=== PATIENT | female | born 1990 | race Two or more races ===

== ENCOUNTER 2019-03-30 12:11 | Emergency (ER) | payer MEDICAID ==
[~2019-03-30] VITALS: Ht 167.6 cm; Wt 93.0 kg
[2019-03-30 12:15] VITALS: BP 130/85
--- NOTE | 2019-03-30 12:38 | Emergency Room Report ---
History of Present Illness General Chief Complaint: Abdominal Pain Source: Patient Present Illness HPI Patient presents with left lower quadrant pain radiating towards her back. It started earlier today. His been constant and she's not taken any medication for it. The pain is rated 6/10. It's aching. She denies any dysuria or hematuria. She's midcycle at this time. She had loose stool twice this morning. Wasn't diarrhea or mucousy. No melena or blood. She also had some nausea without any vomiting. The nausea has resolved. She never been before. She denies any fevers or chills. No major medical illness. No prior surgeries. 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 Now: No Reviewed Nursing Documentation: PMH: Agreed; PSxH: Agreed Nursing Documentation-PMH Past Medical History: No Stated History Review of Systems All Other Systems: negative except mentioned in HPI Physical Exam Vital Signs Date Time Temp Pulse Resp B/P (MAP) Pulse Ox O2 Delivery O2 Flow Rate FiO2 03/30/19 12:15 86 20 Room Air 03/30/19 12:15 98.4 130/85 98 Sp02 EP Interpretation: reviewed, normal General Appearance: well appearing, no apparent distress, GCS 15 Head: normocephalic, atraumatic Eyes: bilateral eye normal inspection ENT: moist mucus membranes Neck: supple Respiratory: lungs clear, normal breath sounds Cardiovascular #1: regular rate, rhythm Cardiovascular #2: 2+ radial (R) Gastrointestinal: normal inspection, normal bowel sounds, no mass, non- distended, no guarding, no rebound, tenderness Genitourinary: no CVA tenderness Musculoskeletal: back normal, gait/station normal, normal range of motion Neurologic: alert, oriented x3, grossly normal Psychiatric: mood/affect normal Skin: normal inspection, warm/dry Medical Decision Making Diagnostic Impression: Primary Impression: Abdominal pain Qualified Codes: R10.32 - Left lower quadrant pain Additional Impression: Leukocytosis Qualified Codes: D72.828 - Other elevated white blood cell count ER Course Patient presents with left lower quadrant pain that began this morning. Differential includes ovarian cyst, ectopic , renal stone, diverticulitis, inflammatory bowel disease amongst others. Evaluation will be with lab work urinalysis and pelvic ultrasound. The patient will be treated with IV hydration and Tylenol. Labs with leukocytosis. UA clear. CMP and lipase normal. Pain persists and slightly worse after u/s. Fluid cul de sac. Normal ovaries. CT scan ordered. Toradol ordered. CT with possible small bowel thickening. Repeat exam - abd soft. Improved with treatment. Discussed results with patient as well as outpatient observation. Advised to return if worse. Patient stable for outpatient observation and treatment. Laboratory Tests Test 03/30/19 11:40 03/30/19 12:21 White Blood Count 12.2 K/UL (4.8-10.8) H Red Blood Count 4.37 M/UL (4.20-5.40) Hemoglobin 13.6 G/DL (12.0-16.0) Hematocrit 41.3 % (37.0-47.0) Mean Corpuscular Volume 94 FL (80-99) Mean Corpuscular Hemoglobin 31.1 PG (27.0-31.0) H Mean Corpuscular Hemoglobin Concent 33.0 G/DL (32.0-36.0) Red Cell Distribution Width 12.0 % (11.6-14.8) Platelet Count 303 K/UL (150-450) Mean Platelet Volume 6.5 FL (6.5-10.1) Neutrophils (%) (Auto) 70.8 % (45.0-75.0) Lymphocytes (%) (Auto) 21.2 % (20.0-45.0) Monocytes (%) (Auto) 5.9 % (1.0-10.0) Eosinophils (%) (Auto) 1.0 % (0.0-3.0) Basophils (%) (Auto) 1.1 % (0.0-2.0) Prothrombin Time 10.1 SEC (9.30-11.50) Prothrombin Time INR 1.0 (0.9-1.1) PTT 28 SEC (23-33) Sodium Level 141 MMOL/L (136-145) Potassium Level 4.2 MMOL/L (3.5-5.1) Chloride Level 106 MMOL/L (98-107) Carbon Dioxide Level 28 MMOL/L (21-32) Anion Gap 7 mmol/L (5-15) Blood Urea Nitrogen 12 mg/dL (7-18) Creatinine 0.9 MG/DL (0.55-1.30) Estimate Glomerular Filtration Rate > 60 mL/min (>60) Glucose Level 87 MG/DL (74-106) Calcium Level 8.9 MG/DL (8.5-10.1) Total Bilirubin 0.3 MG/DL (0.2-1.0) Aspartate Amino Transferase (AST) 14 U/L (15-37) L Alanine Aminotransferase (ALT) 21 U/L (12-78) Alkaline Phosphatase 75 U/L (46-116) Total Protein 6.8 G/DL (6.4-8.2) Albumin 3.4 G/DL (3.4-5.0) Globulin 3.4 g/dL Albumin/Globulin Ratio 1.0 (1.0-2.7) Lipase 138 U/L (73-393) Urine Color Pale yellow Urine Appearance Clear Urine pH 7 (4.5-8.0) Urine Specific [place] 1.005 (1.005-1.035) Urine Protein Negative (NEGATIVE) Urine Glucose (UA) Negative (NEGATIVE) Urine Ketones Negative (NEGATIVE) Urine Blood 1+ (NEGATIVE) H Urine Nitrite Negative (NEGATIVE) Urine Bilirubin Negative (NEGATIVE) Urine Urobilinogen Normal MG/DL (0.0-1.0) Urine Leukocyte Esterase Negative (NEGATIVE) Urine RBC 0-2 /HPF (0 - 2) Urine WBC 0 /HPF (0 - 2) Urine Squamous Epithelial Cells Few /LPF (NONE/OCC) Urine Bacteria Occasional /HPF (NONE) Urine HCG, Qualitative Negative (NEGATIVE) CT/MRI/US Diagnostic Results CT/MRI/US Diagnostic Results #1: Imaging Test Ordered: pelvic u/s Impression normal ovaries, fluid in cul de sac CT/MRI/US Diagnostic Results #2: Imaging Test Ordered: CT abd/pelvis Impression Impression: Limited assessment of the GI tract, due to lack of enteric contrast administration Very questionable left upper quadrant minimal small bowel wall thickening; doubt significance but if real could indicate mild enteritis changes No acute process otherwise Questionable single colonic diverticulum. No evidence of diverticulitis. Trace free pelvic cul-de-sac fluid, most likely physiologic Right renal cyst. Subcentimeter low-attenuation bilateral renal lesions, too small to characterize, most likely benign simple cysts. No further follow-up necessary Last Vital Signs Date Time Temp Pulse Resp B/P (MAP) Pulse Ox O2 Delivery O2 Flow Rate FiO2 03/30/19 15:37 98.2 71 19 116/91 98 Room Air Status: improved Disposition: HOME, SELF-CARE Condition: Improved Scripts Ibuprofen* (MOTRIN*) 600 Mg Tablet 600 MG ORAL Q6H PRN for For Pain, #20 TAB Prov: Nathan Rivera MD 03/30/19 Tramadol Hcl* (ULTRAM*) 50 Mg Tablet 50 MG ORAL Q6H PRN for For Pain, #6 TAB 0 Refills Prov: Nathan Rivera MD 03/30/19 Ondansetron Odt* (ZOFRAN ODT*) 4 Mg Tab.rapdis 4 MG BC EVERY 8 HOURS, #6 TAB 0 Refills Prov: Nathan Rivera MD 03/30/19 Nathan Rivera MD Mar 30, 2019 12:38
[2019-03-30 13:01] LABS: APPEARANCE,URINE CLEAR; BILIRUBIN, URINE NEGATIVE (NEGATIVE); COLOR,URINE PALE YELLOW; GLUCOSE, URINE (UA) NEGATIVE (NEGATIVE); KETONES,URINE NEGATIVE (NEGATIVE); LEUKOCYTE ESTERASE ,URINE NEGATIVE (NEGATIVE); NITRITE,URINE NEGATIVE (NEGATIVE); PH,URINE 7 (4.5-8.0); PROTEIN,URINE NEGATIVE (NEGATIVE); UROBILINOGEN,URINE NORMAL MG/DL (0.0-1.0)
[2019-03-30 13:07] LABS: ANION GAP 7 mmol/L (5-15); BLOOD UREA NITROGEN 12 mg/dL (7-18); CALCIUM 8.9 MG/DL (8.5-10.1); CARBON DIOXIDE 28 MMOL/L (21-32); CHLORIDE 106 MMOL/L (98-107); CREATININE 0.9 MG/DL (0.55-1.30); POTASSIUM 4.2 MMOL/L (3.5-5.1); SODIUM 141 MMOL/L (136-145)
[2019-03-30 13:11] LABS: ALANINE AMINOTRANSFERASE 21 U/L (12-78); ALBUMIN 3.4 G/DL (3.4-5.0); ALKALINE PHOSPHATASE 75 U/L (46-116); ASPARTATE AMINO TRANSFERASE 14 U/L (15-37); BILIRUBIN,TOTAL 0.3 MG/DL (0.2-1.0)
[2019-03-30 13:17] LABS: BASOPHILS % (AUTO) 1.1 % (0.0-2.0); HEMATOCRIT 41.3 % (37.0-47.0); HEMOGLOBIN 13.6 G/DL (12.0-16.0); LYMPHOCYTES % (AUTO) 21.2 % (20.0-45.0); MEAN CORPUSCULAR VOLUME 94 FL (80-99); MONOCYTES % (AUTO) 5.9 % (1.0-10.0); NEUTROPHILS % (AUTO) 70.8 % (45.0-75.0); PLATELET COUNT 303 K/UL (150-450); RED BLOOD COUNT 4.37 M/UL (4.20-5.40); WHITE BLOOD COUNT 12.2 K/UL (4.8-10.8)
--- NOTE | 2019-03-30 13:21 | NUR ---
ED Nurse Note: Pt. AAOx4. ambulatory. came in to ER due to sharp pain on the LLQ since this morning radiating to the left lower back. denies urinary and bowel problem. denies recent injury. denies diarrhea nor constipation. denies vomitting but had nausea earlier. no apparent c/o nausea at this time
--- NOTE | 2019-03-30 13:32 | NUR ---
ED Nurse Note: Pt went down to US.
[2019-03-30 14:00] VITALS: BP 129/82
--- NOTE | 2019-03-30 14:20 | NUR ---
ED Nurse Note: PT BACK FROM [facility]IA [facility]
[2019-03-30] MEDS ORDERED: Ketorolac 30mg Inj IV ONE (14:30)
[2019-03-30] MEDS ORDERED: Isovue-300 100ml vial INJ PRN (14:30)
--- NOTE | 2019-03-30 15:08 | Diagnostic Imaging Report ---
Indication: Left-sided pelvic pain. Negative test Technique: Transabdominal and transvaginal images. Doppler interrogation of the ovaries Comparison: none Findings: Uterus measures 8.1 cm length by 2.9 cm AP. Endometrium measures normal thickness. A few small subendometrial cysts are demonstrated. No myometrial abnormality. There is trace free cul-de-sac fluid noted. Right ovary measures 2.2 cm length. Left ovary measures 2.9 cm length. No adnexal mass. Trace free cul-de-sac fluid demonstrated Impression: A few small subendometrial cysts, could represent foci of adenomyosis Trace free cul-de-sac fluid, likely physiologic Negative for adnexal mass
--- NOTE | 2019-03-30 15:10 | NUR ---
ED Nurse Note: Pt went down to CT.
--- NOTE | 2019-03-30 15:21 | NUR ---
ED Nurse Note: Pt back from CT.
[2019-03-30] MEDS ORDERED: TRAMADOL HCL50 MG ORAL (15:30)
[2019-03-30] MEDS ORDERED: ONDANSETRON ODT4 MG BC (15:30)
[2019-03-30] MEDS ORDERED: IBUPROFEN600 MG ORAL (15:30)
[2019-03-30 15:37] VITALS: BP 116/91
--- NOTE | 2019-03-30 15:39 | NUR ---
ER DISCHARGE NOTE: Patient is cleared to be discharged per ERMD, pt is aox4, on room air, with stable vital signs. pt was given dc and prescription instructions, pt was able to verbalize understanding, pt id band and iv site removed without complications. pt is able to ambulate with steady gait. pt took all belongings.
--- NOTE | 2019-03-30 15:45 | Diagnostic Imaging Report ---
Clinical Indication: Sharp left lower quadrant pain this morning radiating to the left lower back Technique: No oral contrast utilized, per emergency room physician request IV administration nonionic contrast. Venous phase spiral acquisition obtained through the abdomen and pelvis. Multiplanar reconstructions were generated. Total dose length product 919.2 mGycm. CTDIvol(s) 18.4 mGy. Dose reduction achieved using automated exposure control Comparison: none Findings: Lack of enteric contrast was assessment of the GI tract Questionable colonic diverticulum is noted at the splenic flexure. No evidence of diverticulitis. The appendix is normal. No small bowel distention. There is equivocal mild focal wall thickening of the proximal jejunum in the left upper quadrant. There is a small fat-containing umbilical hernia. No small bowel distention. There is trace free fluid in the pelvic cul-de-sac. There is a tiny fat-containing umbilical hernia. The gallbladder is nondistended. The liver, bile ducts, pancreas, spleen, adrenals are unremarkable. The right kidney demonstrates an interpolar region cyst. There are subcentimeter low-attenuation renal lesions bilaterally which are too small to characterize, most likely represent benign simple cysts. No retroperitoneal or mesenteric mass or adenopathy. No pelvic mass or adenopathy. Uterus and ovaries appear unremarkable. The included lung bases are clear. The bones are unremarkable. Impression: Limited assessment of the GI tract, due to lack of enteric contrast administration Very questionable left upper quadrant minimal small bowel wall thickening; doubt significance but if real could indicate mild enteritis changes No acute process otherwise Questionable single colonic diverticulum. No evidence of diverticulitis. Trace free pelvic cul-de-sac fluid, most likely physiologic Right renal cyst. Subcentimeter low-attenuation bilateral renal lesions, too small to characterize, most likely benign simple cysts. No further follow-up necessary The CT scanner at [facility] is accredited by the [employer] and the scans are performed using protocols designed to limit radiation exposure to as low as reasonably achievable to attain images of sufficient resolution adequate for diagnostic evaluation.
== END 2019-03-30 15:39 | disposition home or self-care (01) ==
LOC: EMR 12:45
DX: R10.32 Left lower quadrant pain (principal); D72.828 Other elevated white blood cell count; R11.0 Nausea; F17.200 Nicotine dependence, unspecified, uncomplicated; N20.0 Calculus of kidney
CPT/HCPCS: 36415; 74177; 76830; 76856; 80053; 81003; 81025; 83690; 85025; 85610; 85730; 96361; 96374; 99284; J1885; Q9967

== ENCOUNTER 2019-08-04 10:17 | Emergency (ER) | payer MEDICAID ==
[~2019-08-04] VITALS: Ht 165.1 cm; Wt 90.7 kg
[~2019-08-04 10:17] MED LIST: IBUPROFEN600 MG ORAL; ONDANSETRON ODT4 MG BC; TRAMADOL HCL50 MG ORAL
[2019-08-04] MEDS ORDERED: NKM (10:27)
--- NOTE | 2019-08-04 10:35 | Emergency Room Report ---
History of Present Illness General Chief Complaint: Lower Extremity Injury Source: Patient Present Illness HPI Patient presents with complaints of right knee pain reports that yesterday she was rushing out of the house And was not sure if she ended up twisting her knee or hitting it against a drum however she felt a sensation of the Knee dislocating and then again coming back to place she has been having pain in that area since then patient reports that she has not Dislocated the knee since she was 18 years old Denies any calf pain denies any ankle pain discomfort is mainly localized to the knee itself Allergies: Coded Allergies: No Known Allergies (Unverified , 03/30/19) Patient History Past Medical History: see triage record Now: No Reviewed Nursing Documentation: PMH: Agreed; PSxH: Agreed Nursing Documentation-PMH Past Medical History: No Stated History Review of Systems All Other Systems: negative except mentioned in HPI Physical Exam Vital Signs Date Time Temp Pulse Resp B/P (MAP) Pulse Ox O2 Delivery O2 Flow Rate FiO2 08/04/19 10:23 98.4 87 18 131/82 (98) 99 Room Air Sp02 EP Interpretation: reviewed, normal General Appearance: mild distress - Tearful Head: normocephalic, atraumatic Eyes: bilateral eye PERRL, bilateral eye EOMI ENT: normal pharynx Neck: supple Respiratory: lungs clear, no respiratory distress Musculoskeletal: other - Discomfort to any palpation around the patellar area on the right side no obvious swelling or edema, patient is ambulatory flexion and extension intact Neurologic: alert, oriented x3, responsive Skin: no rash Lymphatic: no adenopathy Procedures Splinting Splinting : Consent: Verbal Location: right Knee Pre-Made Type: knee immobilizer Splint: Pre-Proc Neuro Vasc Exam: normal Post-Proc Neuro Vasc Exam: normal Patient Tolerated: Well Complications: None Medical Decision Making Diagnostic Impression: Primary Impression: Knee sprain ER Course Given the history and exam multiple differentials and consideration including but not limited to knee sprain ligamental injury,, meniscal injury Other orthopedic differential such as acute fracture Patient's x-ray imaging Does not show any acute pathology Clinically no obvious effusion appreciated And patient is stable for close outpatient follow-up Other X-Ray Diagnostic Results Other X-Ray Diagnostic Results : X-Ray ordered: Right knee # of Views/Limited Vs Complete: 4 View Indication: Pain EP Interpretation: Yes Interpretation: no dislocation, no soft tissue swelling, no fractures Impression: No acute disease Electronically Signed by: Aashish Cooper DO Last Vital Signs Date Time Temp Pulse Resp B/P (MAP) Pulse Ox O2 Delivery O2 Flow Rate FiO2 08/04/19 10:23 98.4 87 18 131/82 (98) 99 Room Air Status: improved Disposition: HOME, SELF-CARE Condition: Improved Scripts Ibuprofen* (MOTRIN*) 600 Mg Tablet 600 MG ORAL Q8H PRN for For Pain, #20 TAB 0 Refills Prov: Aashish Cooper DO 08/04/19 Additional Instructions: Patient is provided with the discharge instructions notified to follow up with primary doctor in the next 2-3 days otherwise return to the er with any worsening symptoms. Please note that this report is being documented using [employer] technology. This can lead to erroneous entry secondary to incorrect interpretation by the dictating instrument. Aashish Cooper DO Aug 04, 2019 10:35
--- NOTE | 2019-08-04 10:39 | NUR ---
ED Nurse Note: pt walked in due to right knee pain. pt stated she bumped her knee in a drum [place] last nigh then she fell, denies hitting the head. pt is seen by elke. will continue to monitor.
[2019-08-04] MEDS ORDERED: IBUPROFEN600 MG ORAL (10:45)
[2019-08-04 11:08] VITALS: BP 125/80
--- NOTE | 2019-08-04 11:39 | Diagnostic Imaging Report ---
Indication: Right knee pain Technique: 3 views of the right knee Comparison: None Findings: No acute fractures. No dislocations. The joint spaces are preserved. No suprapatellar effusion Impression: Negative
== END 2019-08-04 11:08 | disposition home or self-care (01) ==
LOC: EMR 10:45
DX: S83.91XA Sprain of unspecified site of right knee, initial encounter (principal); X58.XXXA Exposure to other specified factors, initial encounter; Y92.009 Unspecified place in unspecified non-institutional (private) residence as the place of occurrence of the external cause
CPT/HCPCS: 29505; 99283

== ENCOUNTER 2019-08-24 17:50 | Emergency (ER) | payer MEDICAID ==
[~2019-08-24] VITALS: Ht 167.6 cm; Wt 90.7 kg
[~2019-08-24 17:50] MED LIST changes: +NKM
--- NOTE | 2019-08-24 19:44 | Emergency Room Report ---
History of Present Illness General Chief Complaint: Lower Extremity Injury Source: Patient Present Illness HPI 29-year-old female presents to the emergency department complaining of 6 out of 10 severity pain in the right knee x3 weeks status post mechanical trip and fall. Patient reports she was placed in a knee immobilizer and is supposed to follow-up with orthopedics for which she has been unable to. Patient denies any additional trauma or fall since first evaluation she denies swelling to the calf, calf pain, or swelling of the foot or ankle of the affected extremity. She denies chest pain, cough, palpitations. She reports pain is exacerbated with attempts to bear weight on leg that was immobilized she states initially she felt as though her knee was giving out and she had a similar injury over 10 years ago with injury to the ligaments. Denies numbness tingling or loss of sensation or gross motor movements of the extremities, dizziness, Changes in Vision, weakness or a sudden severe headache. Allergies: Coded Allergies: No Known Allergies (Unverified , 03/30/19) Patient History Past Medical History: see triage record Past Surgical History: none Pertinent Family History: none Now: No Reviewed Nursing Documentation: PMH: Agreed; PSxH: Agreed Nursing Documentation-PMH Past Medical History: No Stated History Review of Systems All Other Systems: negative except mentioned in HPI Physical Exam Vital Signs Date Time Temp Pulse Resp B/P (MAP) Pulse Ox O2 Delivery O2 Flow Rate FiO2 08/24/19 17:56 99.0 97 16 141/92 (108) 99 Room Air Sp02 EP Interpretation: reviewed, normal General Appearance: no apparent distress, alert, GCS 15, non-toxic Head: normocephalic, atraumatic Eyes: bilateral eye normal inspection, bilateral eye PERRL ENT: hearing grossly normal, normal voice Neck: full range of motion Respiratory: lungs clear, normal breath sounds, speaking full sentences Cardiovascular #1: regular rate, rhythm Musculoskeletal: back normal, gait/station normal, normal range of motion, tender - Right knee, mild swelling anteriorly, no erythema or warmth. FROM with pain, no significant increased laxity on exam. Neurologic: alert, oriented x3, responsive, motor strength/tone normal, sensory intact, speech normal, grossly normal Psychiatric: judgement/insight normal Lymphatic: no adenopathy Medical Decision Making PA Attestation Dr. Rivera Is my supervising Physician whom patient management has been discussed with. Diagnostic Impression: Primary Impression: Knee pain, right Qualified Codes: M25.561 - Pain in right knee Additional Impression: Soft tissue injury of right knee Qualified Codes: S89.91XA - Unspecified injury of right lower leg, initial encounter ER Course 29-year-old female presents to the emergency department complaining of 6 out of 10 severity pain in the right knee x3 weeks status post mechanical trip and fall. Patient reports she was placed in a knee immobilizer and is supposed to follow-up with orthopedics for which she has been unable to. Patient denies any additional trauma or fall since first evaluation she denies swelling to the calf, calf pain, or swelling of the foot or ankle of the affected extremity. She denies chest pain, cough, palpitations. She reports pain is exacerbated with attempts to bear weight on leg that was immobilized she states initially she felt as though her knee was giving out and she had a similar injury over 10 years ago with injury to the ligaments. Denies numbness tingling or loss of sensation or gross motor movements of the extremities, dizziness, Changes in Vision, weakness or a sudden severe headache. Ddx considered but are not limited to Fracture, dislocation, contusion, , Sprain /Strain/Spasm, ligamental injury, meniscal injury just to name a few Vital signs: are WNL, pt. is afebrile H&PE are most consistent with knee strain/ overuse. ORDERS: --Emergent imaging is not warranted at this time, there is been no additional trauma or new symptoms since initial evaluation. ED INTERVENTIONS: --Knee Immobilizer splint applied to the right knee by diesel maintenance technician. Pt. remains neurovascularly intact. --Patient is provided with crutches and instructed on their use -I do not identify an emergent condition at this time. With current presentation , pt. is stable for close outpatient follow up and conservative treatment. D/ w pt. to return promptly to ED with worsening or new symptoms.- Pt. verbalizes' understanding and agreement with proposed treatment plan. DISCHARGE: At this time pt. is stable for d/c to home. Will provide printed patient care instructions, and any necessary prescriptions. Care plan and follow up instructions have been discussed with the patient prior to discharge. Last Vital Signs Date Time Temp Pulse Resp B/P (MAP) Pulse Ox O2 Delivery O2 Flow Rate FiO2 08/24/19 17:56 99.0 97 16 141/92 (108) 99 Room Air Disposition: HOME, SELF-CARE Condition: Stable Scripts Acetaminophen With Codeine (T#3) (TYLENOL #3 TAB*) Y Tab 1 TAB ORAL Q8HR PRN for For Pain, #6 TAB Prov: Shefali Montgomery 08/24/19 Naproxen* (NAPROXEN*) 500 Mg Tablet 500 MG ORAL TWICE A DAY, #20 TAB Prov: Shefali Montgomery 08/24/19 Patient Instructions: Knee Sprain Additional Instructions: Take medications as directed. Follow up with an FOOD DEHYDRATOR OPERATOR in 3-5 days, even if your symptoms have resolved. If symptoms persist MRI may be required at the discretion of your PCP or Ortho Specialist. --Please review list of primary care clinics, if you do not already have a primary care provider who can give you an Orthopedic Referral. Return sooner to ED if new symptoms occur, or current symptoms become worse. Do not drink alcohol, drive, or operate heavy machinery while taking Tylenol # 3 as this may cause drowsiness. - Please note that this Emergency Department Report was dictated using [employer] information assistant technology software, occasionally this can lead to erroneous entry secondary to interpretation by the dictation equipment. Shefali Montgomery Aug 24, 2019 19:44
--- NOTE | 2019-08-24 19:44 | NUR ---
ED Nurse Note: Pt ambulated to ED from home stating "my R knee feels like its getting worse, 6/10 pain" Pt was seen 3 weeks ago after injuring it. Pt has been wearing a knee brace but states it feels worse
[2019-08-24] MEDS ORDERED: ACETAMINOPHEN-1 EAC1 ORAL (20:06)
[2019-08-24] MEDS ORDERED: NAPROXEN500 M2 ORAL (20:06)
[2019-08-24 20:10] VITALS: BP 141/92
--- NOTE | 2019-08-24 20:10 | NUR ---
ER DISCHARGE NOTE: Patient is cleared to be discharged per ERMD, pt is aox4, on room air, with stable vital signs. pt was given dc and prescription instructions, pt was able to verbalize understanding, pt id band removed. pt is able to ambulate with steady gait. pt took all belongings.
== END 2019-08-24 20:10 | disposition home or self-care (01) ==
LOC: EMR 20:00
DX: S89.91XA Unspecified injury of right lower leg, initial encounter (principal); M25.561 Pain in right knee; W18.30XA Fall on same level, unspecified, initial encounter; Y92.9 Unspecified place or not applicable
CPT/HCPCS: 29505; Z7502; 99283